=== PATIENT | male | born 1960 | race Caucasian/White ===

== ENCOUNTER 2020-07-09 09:56 | Inpatient (IN) ==
[2020-07-09] MEDS ORDERED: ONDANSETRON 4 MG/2 ML VIAL IV PRN (10:56)
[2020-07-09] MEDS ORDERED: ZALEPLON 5 MG CAPSULE PO PRN (10:56)
[2020-07-09] MEDS ORDERED: ACETAMINOPHEN 325 MG TABLET PO PRN (10:56)
[2020-07-09 11:38] LABS: Basophils # 0.1 10*3/uL (0.0-0.2); Basophils % 0.5 % (0.0-0.8); Eosinophils # 0.3 10*3/uL (0.0-0.87); Eosinophils % 3.3 % (0.00-10.9); Hematocrit 25.7 VOL% (42.0-52.0); Hemoglobin 8.1 GM/DL (14.0-18.0); Immature Granulocytes % 0.6 %; Immature Granulocytes Absolute 0.06 #; Lymphocytes # 0.9 10*3/uL (1.4-4.0); Lymphocytes % 8.9 % (21.2-54.2); Mean Corpuscular HGB Conc 31.5 GM/DL (32-36); Mean Corpuscular Volume 94.1 FL (87-102); Mean Platelet Volume 10.3 FL (9.6-12.0); Monocytes % 8.5 % (1.7-12.7); Neutrophils % 78.2 % (38.7-73.9); Platelet Count 214 T/CUMM (130-400); Red Blood Count 2.73 MC/CUMM (3.8-5.5); Red Cell Distribution Width 13.8 % (9.3-17.3); White Blood Count 10.2 T/CUMM (4-12)
[2020-07-09 11:59] LABS: Albumin 3.3 G/DL (3.4-5.0); Bilirubin,Total 0.8 MG/DL (0.2-1.0); Calcium 7.9 MG/DL (8.5-10.1); Osmolality,Calculated 302.7 MOS/KG (273-304); Potassium 4.6 MMOL/L (3.5-5.1); Total Protein 7.4 G/DL (6.4-8.2)
[2020-07-09] MEDS: SEVELAMER CARBONATE 800 MG TABLET PO SCH ×3 (12:08→18:09)
[2020-07-09 15:57] LABS: Hepatitis B Core IgM Quant 0.08 Index; Hepatitis B Surface Ag Quant < 0.10 Index; Hepatitis B Surface Ag Result Non-Reactive (NonReactive); Hepatitis C Virus Ab Result Non-Reactive (NonReactive)
[2020-07-09] MEDS: PROPRANOLOL 20 MG TABLET PO SCH (22:00)
[2020-07-10 05:06] LABS: Calcium 7.5 MG/DL (8.5-10.1); Osmolality,Calculated 298.7 MOS/KG (273-304); Potassium 4.4 MMOL/L (3.5-5.1)
[2020-07-10] MEDS: SEVELAMER CARBONATE 800 MG TABLET PO SCH ×3 (08:08→16:51)
[2020-07-10] MEDS ORDERED: SODIUM POLYSTYRENE SULFATE 15 GM/60 ML BOTTLE PO SCH (09:00)
[2020-07-10] MEDS ORDERED: EPOETIN ALFA-EPBX 10,000 UNIT/ML VIAL IV PRN (10:51)
[2020-07-10] MEDS: PROPRANOLOL 20 MG TABLET PO SCH ×2 (12:57→21:25)
[2020-07-10] MEDS: PANTOPRAZOLE 40 MG TABLET PO SCH (13:01)
[2020-07-11 04:57] LABS: Calcium 7.8 MG/DL (8.5-10.1); Osmolality,Calculated 294.4 MOS/KG (273-304); Potassium 4.2 MMOL/L (3.5-5.1)
[2020-07-11] MEDS: PANTOPRAZOLE 40 MG TABLET PO SCH (08:44)
[2020-07-11] MEDS: PROPRANOLOL 20 MG TABLET PO SCH ×2 (08:44→20:38)
[2020-07-11] MEDS: SEVELAMER CARBONATE 800 MG TABLET PO SCH ×3 (08:44→18:02)
[2020-07-12 07:15] LABS: Basophils % 0.5 % (0.0-0.8); Eosinophils # 0.3 10*3/uL (0.0-0.87); Eosinophils % 4.1 % (0.00-10.9); Hemoglobin 6.8 GM/DL (14.0-18.0); Immature Granulocytes % 0.3 %; Immature Granulocytes Absolute 0.02 #; Lymphocytes # 0.8 10*3/uL (1.4-4.0); Lymphocytes % 12.5 % (21.2-54.2); Mean Corpuscular HGB Conc 29.6 GM/DL (32-36); Mean Corpuscular Volume 96.2 FL (87-102); Mean Platelet Volume 10.8 FL (9.6-12.0); Monocytes % 11.7 % (1.7-12.7); Neutrophils % 70.9 % (38.7-73.9); Platelet Count 156 T/CUMM (130-400); Red Blood Count 2.39 MC/CUMM (3.8-5.5); Red Cell Distribution Width 13.7 % (9.3-17.3); White Blood Count 6.7 T/CUMM (4-12)
[2020-07-12 07:33] LABS: Osmolality,Calculated 296.4 MOS/KG (273-304); Potassium 4.4 MMOL/L (3.5-5.1)
[2020-07-12] MEDS ORDERED: SODIUM CHLORIDE 0.9% 1,000 ML IV PRN (07:34)
[2020-07-12] MEDS: SEVELAMER CARBONATE 800 MG TABLET PO SCH ×3 (08:47→17:18)
[2020-07-12] MEDS: PROPRANOLOL 20 MG TABLET PO SCH (08:47)
[2020-07-12] MEDS: PANTOPRAZOLE 40 MG TABLET PO SCH (08:47)
[2020-07-12 17:35] VITALS: BP 186/82
== END 2020-07-12 18:00 | disposition home or self-care (01) | DRG 682 ==
LOC: SUATTDRO 10:10 → N.3E 10:10
PROVIDERS: ADMIT Internal Medicine; ATTEND Hospitalist